=== PATIENT | male | born 1955 | race Caucasian/White ===

== ENCOUNTER 2019-06-30 16:18 | Observation (INO) | payer OTHER ==
[~2019-06-30] VITALS: Ht 180.3 cm; Wt 105.7 kg
--- NOTE | ~2019-06-30 | EKG ---
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
--- NOTE | ~2019-06-30 | EKG ---
[place] [address] ELECTROCARDIOGRAM REPORT Name: AZAM PALUMBO Room: [address] ADM IN [facility].#: [id number] Admission: 06/30/19 Attend Phys: Ema Aquino Discharge: Date of : 59 Date of Service: 06/30/19 1625 Report #: [id number] THIS REPORT FOR: cc: FAM - No family physician/PCP FAM - No family physician/PCP Rosa Lee MD ~ THIS REPORT FOR: //name// [facility] ED Test Date: 2019-06-30 Test Time: 16:25:44 Pat Name: AZAM PALUMBO Department: Room: [address] Gender: M Manager Language: SABINO : 1955 Requested By: Loyd Liu Order Number: [id number] Reading MD: Measurements Intervals [place] Rate: 109 P: 63 OR: 199 QRS: -27 QRSD: 94 T: 87 QT: 331 QTc: 446 Interpretive Statements Sinus tachycardia Ventricular premature complex Biatrial enlargement Inferior infarct, acute (RCA) Probable RV involvement, suggest recording right precordial leads No previous ECG available for comparison [email or web address] By: 24 Epiphany EpiphanyMD /MARIE
[2019-06-30 16:30] VITALS: BP 185/100
[2019-06-30] MEDS ORDERED: PROSCAR 5MG TABL5 M1 PO (16:38)
[2019-06-30] MEDS ORDERED: AMLODIPINE BESY10 MG PO (16:38)
[2019-06-30] MEDS ORDERED: HYDROCHLOROTH12.5 M2 PO (16:38)
[2019-06-30] MEDS ORDERED: ZESTRIL40 MG PO (16:38)
[2019-06-30] MEDS ORDERED: FLOMAX0.4 MG PO (16:39)
[2019-06-30 17:08] LABS: ABSOLUTE BASOPHILS 0.1 thou/uL (0.0-0.2); ABSOLUTE EOSINOPHILS 0.2 thou/uL (0.0-0.7); ABSOLUTE LYMPHOCYTES 1.6 thou/uL (0.8-5.3); ABSOLUTE MONOCYTES 0.5 thou/uL (0.0-1.2); ABSOLUTE NEUTROPHILS 5.1 thou/uL (1.6-8.1); BASOPHILS 0.7 %; EOSINOPHILS 3.3 %; HEMATOCRIT 45.2 % (42.0-52.0); HEMOGLOBIN 15.5 gm/dL (14.0-18.0); LYMPHOCYTES 21.7 %; MCH 28.1 pg (26.0-34.0); MCHC 34.4 g/dL (28.0-37.0); MCV 81.9 fL (80.0-100.0); MONOCYTES 7.1 %; MPV 9.9 fl. (7.2-11.1); NUCLEATED RBCS 0 /100WBC; PLATELET COUNT* 240 thou/uL (150-400); POLYS 67.2 %; RBC 5.52 mil/uL (4.50-6.00); RDW-CV 15.3 % (10.5-14.5); WBC 7.5 thou/uL (4.0-11.0)
[2019-06-30 17:17] LABS: APTT 27.2 Seconds (25.0-31.3); INR 1.1; PROTIME 10.8 Seconds (9.20-11.50)
[2019-06-30 17:26] LABS: CALCIUM 8.4 mg/dL (8.5-10.1); CREATININE 1.1 mg/dL (0.6-1.3)
[2019-06-30 17:30] LABS: ALBUMIN 3.8 g/dL (3.4-5.0); MAGNESIUM 1.8 mg/dL (1.8-2.4); TOTAL BILIRUBIN 0.3 mg/dL (<0.1-1.0); TOTAL PROTEIN 7.5 g/dL (6.4-8.2)
[2019-06-30 20:45] VITALS: BP 145/94
[2019-06-30 22:13] VITALS: BP 151/97
[2019-07-01] VITALS: BP 127/78
[2019-07-01 04:05] VITALS: BP 126/76
[2019-07-01 08:01] VITALS: BP 149/90
[2019-07-01 11:19] VITALS: BP 149/90
[2019-07-01 12:00] VITALS: BP 134/86
[2019-07-01 12:04] VITALS: BP 149/90
[2019-07-01 14:47] LABS: CHOLESTEROL 184 mg/dL (<200); HDL CHOLESTEROL 44 mg/dL (>40); LDL CHOLESTEROL 111 mg/dL (<100); MAGNESIUM 1.9 mg/dL (1.8-2.4); SERUM ASSESSMENT Clear; TC:HDL 4.2 Ratio (Not establshd); TRIGLYCERIDE 148 mg/dL (<150); VLDL 30 mg/dL (<40)
[2019-07-02 02:09] LABS: GLYCOHEMOGLOBIN (HGB A1C) 5.4 % (4.8-5.6)
== END 2019-07-01 15:51 | disposition home or self-care (01) ==
LOC: M.ERS 16:18 → M.TBA-ER 17:49 → M.2W 17:49
PROVIDERS: Emergency Medicine Emergency Medical Services; Family Medicine; ADMIT Internal Medicine
DX: R07.89 Other chest pain (principal); I10 Essential (primary) hypertension; E78.5 Hyperlipidemia, unspecified; R73.9 Hyperglycemia, unspecified; E87.6 Hypokalemia; E83.39 Other disorders of phosphorus metabolism; F41.9 Anxiety disorder, unspecified

== ENCOUNTER → 2021-02-20 | Outpatient (CLI) | payer OTHER ==
[~2021-02-20] MED LIST: AMLODIPINE BESY10 MG PO; FLOMAX0.4 MG PO; HYDROCHLOROTH12.5 M2 PO; PROSCAR 5MG TABL5 M1 PO; ZESTRIL40 MG PO
[2021-02-20 09:53] LABS: ALBUMIN 4.1 g/dL (3.4-5.0); ALKALINE PHOSPHATASE 67 U/L (46-116); ANION GAP 10 mmol/L (7-16); BUN 24 mg/dL (7-18); CALCIUM 8.2 mg/dL (8.5-10.1); CHLORIDE 106 mmol/L (98-107); CHOLESTEROL 171 mg/dL (<200); CO2 27 mmol/L (21-32); CREATININE 1.1 mg/dL (0.6-1.3); DIRECT BILIRUBIN < 0.1 mg/dL (<0.1-0.3); GLUCOSE 98 mg/dL (70-99); HDL CHOLESTEROL 48 mg/dL (>40); LDL CHOLESTEROL 106 mg/dL (<100); POTASSIUM 4.1 mmol/L (3.5-5.1); SGOT 14 U/L (15-37); SGPT 29 U/L (30-65); SODIUM 143 mmol/L (136-145); TC:HDL 3.6 Ratio (Not establshd); TOTAL BILIRUBIN 0.5 mg/dL (<0.1-1.0); TOTAL PROTEIN 7.1 g/dL (6.4-8.2); TRIGLYCERIDE 87 mg/dL (<150); VLDL 17 mg/dL (<40)
[2021-02-20 09:54] LABS: SERUM ASSESSMENT Clear
== END ==
LOC: M.LAB 09:15
PROVIDERS: ATTEND Nurse Practitioner
DX: E87.6 Hypokalemia (principal); E78.00 Pure hypercholesterolemia, unspecified